=== PATIENT | male | born 1950 | race African-American/Black ===

== ENCOUNTER 2024-07-17 10:14 | Inpatient (IN) | payer MEDICARE, OTHER ==
[~2024-07-17] VITALS: Ht 172.7 cm; Wt 91.6 kg
[2024-07-17] MEDS ORDERED: MAG HYDROX/AL HYDROX/SIMETH 30 ML UDC PO PRN (14:30)
[2024-07-17] MEDS ORDERED: LORAZEPAM 0.5 MG TABLET PO PRN (14:30)
[2024-07-17] MEDS ORDERED: TEMAZEPAM 7.5 MG CAPSULE PO PRN (14:30)
[2024-07-17] MEDS ORDERED: MAGNESIUM HYDROXIDE 30 ML UDC PO PRN ×2 (14:30→18:00)
[2024-07-17] MEDS ORDERED: MIRT-90 PO (14:36)
[2024-07-17] MEDS ORDERED: AMLO-213 PO (14:36)
[2024-07-17] MEDS ORDERED: RISP2TAB5 PO (14:36)
[2024-07-17] MEDS ORDERED: GABA300C PO (14:36)
[2024-07-17] MEDS ORDERED: OXYC15TA2 PO (14:36)
[2024-07-17 14:41] VITALS: BP 151/86; TEMP 98.1
[2024-07-17] MEDS: BLOOD SUGAR DIAGNOSTIC 1 EACH STRIP IN ONE (15:15)
[2024-07-17 16:00] VITALS: BP 140/85; TEMP 98.4; O2SAT 99
[2024-07-17] MEDS: GABAPENTIN 300 MG CAPSULE PO SCH (17:19)
[2024-07-17] MEDS: oxyCODONE IR immediate release 5 MG TABLET PO PRN (17:19)
[2024-07-17 20:00] VITALS: BP 128/79; TEMP 98.1; O2SAT 98
[2024-07-18 07:15] LABS: CREATININE 1.1 mg/dL (0.6-1.3)
[2024-07-18 07:18] LABS: ALANINE AMINOTRANSFERASE 10 U/L (12-78); ALBUMIN 3.2 g/dL (3.4-5.0); ALKALINE PHOSPHATASE 65 U/L (46-116); ASPARTATE AMINOTRANSFERASE 11 U/L (15-37); BILIRUBIN,TOTAL 0.5 mg/dL (0.2-1.0); CALCIUM, SERUM 8.7 mg/dL (8.5-10.1); CARBON DIOXIDE 32 mmol/L (21-32); CHLORIDE 103 mmol/L (98-107); GLUCOSE 121 mg/dL (74-106); POTASSIUM 3.5 mmol/L (3.5-5.1); SODIUM SERUM 139 mmol/L (136-145); TOTAL PROTEIN, SERUM 6.3 g/dL (6.4-8.2); UREA NITROGEN, BLOOD 19 mg/dL (7-18)
[2024-07-18 07:22] LABS: CHOLESTEROL 139 mg/dL (<200); HDL CHOLESTEROL 51 mg/dL (40-60); LDL 59 mg/dL (0-99); TRIGLYCERIDES 86 mg/dL (30-150)
[2024-07-18 08:00] VITALS: BP 138/79; TEMP 97.9; O2SAT 100
[2024-07-18] MEDS: risperiDONE 1 MG TABLET PO SCH (09:16)
[2024-07-18] MEDS: DOCUSATE SODIUM 100 MG CAPSULE PO SCH (09:17)
[2024-07-18] MEDS: AMLODIPINE BESYLATE 10 MG TABLET PO SCH (09:17)
[2024-07-18 16:00] VITALS: BP 133/85; TEMP 98.8; O2SAT 98
[2024-07-18 20:27] VITALS: BP 137/72; TEMP 98.7; O2SAT 98
[2024-07-18] MEDS: MIRTAZAPINE 15 MG TABLET PO SCH (21:45)
[2024-07-19 07:54] VITALS: BP 144/93; TEMP 98; O2SAT 99
[2024-07-19 16:00] VITALS: BP 132/87; TEMP 98.1; O2SAT 98
[2024-07-19 20:37] VITALS: BP 130/88; TEMP 97.8; O2SAT 99
[2024-07-20 08:00] VITALS: BP 139/91; TEMP 98.7; O2SAT 99
[2024-07-20] MEDS: ACETAMINOPHEN 325 MG TABLET PO PRN (10:01)
[2024-07-20 16:00] VITALS: BP 137/77; TEMP 97.9; O2SAT 98
[2024-07-20] MEDS: risperiDONE 1 MG TABLET PO SCH ×2 (16:59→21:18)
[2024-07-20 20:39] VITALS: BP 150/86; TEMP 98.7; O2SAT 98
[2024-07-21 08:00] VITALS: BP 149/91; TEMP 98.7; O2SAT 100
[2024-07-21] MEDS: METFORMIN 500 MG TABLET PO SCH (09:00)
[2024-07-21 16:00] VITALS: BP 141/81; TEMP 98.7; O2SAT 99
[2024-07-22 08:00] VITALS: BP 130/71; TEMP 99.1; O2SAT 96
[2024-07-22 16:00] VITALS: BP 131/74; TEMP 98.1; O2SAT 98
[2024-07-22 20:00] VITALS: BP 139/68; TEMP 98.3; O2SAT 97
[2024-07-23 08:00] VITALS: BP 148/86; TEMP 98.2; O2SAT 100
[2024-07-23 16:00] VITALS: BP 127/85; TEMP 98.2; O2SAT 99
== END 2024-07-23 17:55 | disposition home or self-care (01) | DRG 885 ==
LOC: GPS 13:35
PROVIDERS: ADMIT Nurse Practitioner Psychiatric/Mental Health; ATTEND Nurse Practitioner Acute Care
DX: F20.9 Schizophrenia, unspecified (principal); R45.851 Suicidal ideations; N39.0 Urinary tract infection, site not specified; F39 Unspecified mood [affective] disorder; E66.9 Obesity, unspecified; I10 Essential (primary) hypertension; Z68.30 Body mass index [BMI] 30.0-30.9, adult; Z73.6 Limitation of activities due to disability; F41.9 Anxiety disorder, unspecified; G89.29 Other chronic pain; M19.90 Unspecified osteoarthritis, unspecified site; G47.00 Insomnia, unspecified; F12.90 Cannabis use, unspecified, uncomplicated; Z87.39 Personal history of other diseases of the musculoskeletal system and connective tissue; F19.90 Other psychoactive substance use, unspecified, uncomplicated; E78.5 Hyperlipidemia, unspecified; Z86.73 Personal history of transient ischemic attack (TIA), and cerebral infarction without residual deficits
CPT/HCPCS: 36415; 80053-TC; 80061-TC; 82565-TC; 82962-TC; 87081-TC